=== PATIENT | female | born 1960 | race Caucasian/White ===

== ENCOUNTER 2016-07-10 10:21 | Inpatient (IN) | payer OTHER ==
[~2016-07-10] VITALS: Ht 167.6 cm; Wt 115.2 kg
[2016-07-10 10:32] VITALS: BP 117/105
[2016-07-10] MEDS ORDERED: ZYRTEC10 M3 PO (10:34)
[2016-07-10 10:51] LABS: BASO % 0.3 % (0.0-1.0); HEMATOCRIT 28.8 % (37.0-47.0); HEMOGLOBIN 9.8 g/dl (12.0-16.0); LYMPH % 7.1 % (27.0-41.0); MEAN CELL VOLUME 86.5 fl (81.0-99.0); MEAN CORPUSCULAR HGB 29.4 pg (27.0-31.0); MEAN PLATELET VOLUME 9.5 fl (9.6-12.3); MONO # 0.8 10*3/uL (0.1-1.0); MONO % 5.6 % (3.0-9.0); NEUT # 11.9 10*3/uL (2.3-7.9); NEUT % 86.9 % (47.0-73.0); PLATELET COUNT AUTOMATED 325 10*3/uL (130-400); RED BLOOD COUNT 3.33 10*6/uL (4.10-5.10); RED CELL DISTRI WIDTH 12.9 % (0-14.5); WHITE BLOOD COUNT 13.7 10*3/uL (4.8-10.8)
[2016-07-10 10:51] LABS: BILIRUBIN NEGATIVE (NEGATIVE); BLOOD NEGATIVE (NEGATIVE); CLARITY SL CLOUDY (CLEAR); COLOR YELLOW (YELLOW); GLUCOSE NEGATIVE (NEGATIVE); KETONE 1+ (NEGATIVE); LEUKO ESTERASE NEGATIVE (NEGATIVE); NITRITE NEGATIVE (NEGATIVE); PH 5.5 (5.0-9.0); PROTEIN TRACE (NEGATIVE); SPECIFIC GRAVITY 1.025 (1.005-1.030); UROBILINOGEN 0.2 E.U./dl (0.2-1.0)
[2016-07-10 11:00] LABS: PROTHROMBIN TIME 10.3 SECONDS (9.0-12.4)
[2016-07-10 11:00] LABS: URINE AMPHETAMINES < 1000 (1000ng/ml); URINE BARBITURATES < 200 (200ng/ml); URINE COCAINE > 300 (300ng/ml)
[2016-07-10 11:07] LABS: ALBUMIN 3.6 gm/dl (3.1-4.5); ALKALINE PHOSPHATASE 128 U/L (45-117); BUN 10 mg/dl (7-24); C-REACTIVE PROTEIN 0.73 MG/DL (0-0.3); CARBON DIOXIDE 22 mmol/L (21-32); CHLORIDE 95 mmol/L (98-107); CPK 447 U/L (26-192); EST GLOM FILT AFRICAN AMERICAN > 60 ml/min; GLUCOSE 174 mg/dL (65-99); MAGNESIUM 1.5 mg/dL (1.5-2.1); POTASSIUM 3.5 mmol/L (3.5-5.1); SGOT/AST 44 IU/L (3-35); SGPT/ALT 39 U/L (12-78); SODIUM 133 mmol/L (136-145); TOTAL PROTEIN 6.7 gm/dL (6.4-8.2)
[2016-07-10 11:08] LABS: URINE REFLEX COMMENT YES (NO)
[2016-07-10 11:09] LABS: HYALINE CAST 0-2; MUCOUS 2+; RBC 0-2 rbc/hpf (0-2)
[2016-07-10 11:14] LABS: TROPONIN I < 0.015 ng/ml (<0.045)
[2016-07-10 11:15] LABS: CKMB 10.4 ng/ml (0.5-3.6)
[2016-07-10 11:18] VITALS: BP 153/78
[2016-07-10 12:06] VITALS: BP 161/66
[2016-07-10 12:48] LABS: LA>2 REFLEX 2 HR DRAW NOW
[2016-07-10 13:00] VITALS: BP 129/87
[2016-07-10 13:33] LABS: LA>2 RFLX FOLLOW UP AT 2 HRS 3.1 mmol/L (0.4-2.0)
[2016-07-10 15:25] LABS: LA>2 REFLEX 4 HR DRAW NOW
[2016-07-10 16:00] VITALS: BP 149/42
[2016-07-10 16:45] LABS: TROPONIN I 0.016 ng/ml (<0.045)
[2016-07-10 16:51] LABS: CKMB 6.8 ng/ml (0.5-3.6)
[2016-07-10 20:00] VITALS: BP 158/81
[2016-07-11] VITALS: BP 133/57
[2016-07-11 04:00] VITALS: BP 140/68
[2016-07-11 08:00] VITALS: BP 146/74
[2016-07-11 12:00] VITALS: BP 121/64
[2016-07-11 16:00] VITALS: BP 112/54
[2016-07-11 19:57] VITALS: BP 154/88
[2016-07-12] VITALS: BP 123/55
[2016-07-12 06:28] LABS: BASO % 0.4 % (0.0-1.0); EOS # 0.2 10*3/uL (0.0-0.4); EOS % 4.4 % (1.0-4.0); HEMATOCRIT 24.4 % (37.0-47.0); HEMOGLOBIN 7.8 g/dl (12.0-16.0); LYMPH # 1.3 10*3/uL (1.3-4.4); LYMPH % 27.4 % (27.0-41.0); MEAN CORPUSCULAR HGB 29.5 pg (27.0-31.0); MONO # 0.3 10*3/uL (0.1-1.0); MONO % 6.3 % (3.0-9.0); NEUT # 2.8 10*3/uL (2.3-7.9); NEUT % 61.3 % (47.0-73.0); RED BLOOD COUNT 2.64 10*6/uL (4.10-5.10); RED CELL DISTRI WIDTH 13.2 % (0-14.5); WHITE BLOOD COUNT 4.6 10*3/uL (4.8-10.8)
[2016-07-12 06:34] LABS: MEAN CELL VOLUME 92.4 fl (81.0-99.0); PLATELET COUNT AUTOMATED 195 10*3/uL (130-400)
[2016-07-12 06:44] LABS: ALBUMIN 2.5 gm/dl (3.1-4.5); ALKALINE PHOSPHATASE 81 U/L (45-117); BILIRUBIN, TOTAL 0.4 mg/dl (0.2-1.0); BUN 7 mg/dl (7-24); CARBON DIOXIDE 29 mmol/L (21-32); CHLORIDE 111 mmol/L (98-107); EST GLOM FILT AFRICAN AMERICAN > 60 ml/min; GLUCOSE 89 mg/dL (65-99); POTASSIUM 3.5 mmol/L (3.5-5.1); SGOT/AST 23 IU/L (3-35); SGPT/ALT 25 U/L (12-78); TOTAL PROTEIN 5.3 gm/dL (6.4-8.2)
[2016-07-12 08:00] VITALS: BP 128/66
[2016-07-12 08:00] LABS: SODIUM 148 mmol/L (136-145)
[2016-07-12 08:01] LABS: CPK 115 U/L (26-192)
[2016-07-12 08:03] LABS: CKMB 1.8 ng/ml (0.5-3.6); TROPONIN I < 0.015 ng/ml (<0.045)
[2016-07-12 12:00] VITALS: BP 124/67
[2016-07-12 16:00] VITALS: BP 149/76
[2016-07-12 20:00] VITALS: BP 144/75
[2016-07-13] VITALS: BP 126/62
[2016-07-13 06:19] LABS: BASO % 0.3 % (0.0-1.0); EOS # 0.4 10*3/uL (0.0-0.4); EOS % 6.9 % (1.0-4.0); HEMATOCRIT 25.8 % (37.0-47.0); HEMOGLOBIN 8.2 g/dl (12.0-16.0); LYMPH # 1.2 10*3/uL (1.3-4.4); LYMPH % 18.5 % (27.0-41.0); MEAN CELL VOLUME 93.1 fl (81.0-99.0); MEAN CORPUSCULAR HGB 29.6 pg (27.0-31.0); MEAN CORPUSCULAR HGB CONC 31.8 g/dl (33.0-37.0); MEAN PLATELET VOLUME 9.8 fl (9.6-12.3); MONO # 0.4 10*3/uL (0.1-1.0); MONO % 5.6 % (3.0-9.0); NEUT # 4.4 10*3/uL (2.3-7.9); NEUT % 68.2 % (47.0-73.0); PLATELET COUNT AUTOMATED 223 10*3/uL (130-400); RED BLOOD COUNT 2.77 10*6/uL (4.10-5.10); RED CELL DISTRI WIDTH 13.2 % (0-14.5); WHITE BLOOD COUNT 6.4 10*3/uL (4.8-10.8)
[2016-07-13 06:33] LABS: ALBUMIN 2.9 gm/dl (3.1-4.5); ALKALINE PHOSPHATASE 85 U/L (45-117); BILIRUBIN, TOTAL 0.6 mg/dl (0.2-1.0); BUN 7 mg/dl (7-24); CARBON DIOXIDE 30 mmol/L (21-32); CHLORIDE 108 mmol/L (98-107); EST GLOM FILT AFRICAN AMERICAN > 60 ml/min; GLUCOSE 116 mg/dL (65-99); POTASSIUM 3.5 mmol/L (3.5-5.1); SGOT/AST 28 IU/L (3-35); SGPT/ALT 26 U/L (12-78); SODIUM 146 mmol/L (136-145); TOTAL PROTEIN 5.9 gm/dL (6.4-8.2)
[2016-07-13 08:00] VITALS: BP 126/90; BP 138/80
[2016-07-13] MEDS ORDERED: ATARAX,VISTARIL50 MG PO (11:45)
[2016-07-13] MEDS ORDERED: NATURE'S BLEND F1 MG PO (11:45)
[2016-07-13] MEDS ORDERED: THERA TABS1 TAB PO (11:45)
[2016-07-13] MEDS ORDERED: VITAMIN B-11 TAB PO (11:45)
[2016-07-13] MEDS ORDERED: ZOFRAN 4 MG ED2 TAB PO (11:45)
[2016-07-13] MEDS ORDERED: METHOCARBAMOL750 M1 PO (11:45)
[2016-07-13 12:00] VITALS: BP 126/59
== END 2016-07-13 13:00 | disposition home or self-care (01) | DRG 897 ==
LOC: ED 10:21 → 5E 11:38 → EDHOLD 11:38 → 5E 12:04
PROVIDERS: Emergency Medicine; Family Medicine; Internal Medicine Hospice and Palliative Medicine
DX: F10.239 Alcohol dependence with withdrawal, unspecified (principal); F14.10 Cocaine abuse, uncomplicated; R65.10 Systemic inflammatory response syndrome (SIRS) of non-infectious origin without acute organ dysfunction; E87.2 Acidosis; E87.1 Hypo-osmolality and hyponatremia; Z68.41 Body mass index [BMI] 40.0-44.9, adult; T79.6XXA Traumatic ischemia of muscle, initial encounter; S70.12XA Contusion of left thigh, initial encounter; J45.909 Unspecified asthma, uncomplicated; D64.9 Anemia, unspecified; R73.9 Hyperglycemia, unspecified; E66.01 Morbid (severe) obesity due to excess calories; Z87.891 Personal history of nicotine dependence; Z84.1 Family history of disorders of kidney and ureter; Z80.0 Family history of malignant neoplasm of digestive organs; Z79.899 Other long term (current) drug therapy; Z80.8 Family history of malignant neoplasm of other organs or systems